=== PATIENT | female | born 2000 ===

== ENCOUNTER 2020-03-14 08:53 | Emergency (ER) | payer OTHER ==
[~2020-03-14] VITALS: Ht 162.6 cm; Wt 81.6 kg
[2020-03-14] MEDS ORDERED: ZITHROMAX500 MG PO (14:29)
== END 2020-03-14 14:55 | disposition home or self-care (01) ==
LOC: ER 08:53
DX: B34.9 Viral infection, unspecified (principal); B96.0 Mycoplasma pneumoniae [M. pneumoniae] as the cause of diseases classified elsewhere; Z03.818 Encounter for observation for suspected exposure to other biological agents ruled out